=== PATIENT | male | born 1965 | race Caucasian/White ===

== ENCOUNTER 2017-10-31 15:18 | Emergency (ER) | payer OTHER ==
[~2017-10-31] VITALS: Ht 177.8 cm; Wt 113.4 kg
[~2017-10-31 15:18] MED LIST: BENICAR; LUNESTA2 MG PO; ZOLOFT100 MG PO
[2017-10-31] MEDS ORDERED: TOBREX5 ML LEFT EYE (16:30)
[2017-10-31] MEDS ORDERED: ERYTHROMYC1 APPLICAT LEFT EYE (16:30)
[2017-10-31 16:48] VITALS: BP 101/61
== END 2017-10-31 16:48 | disposition home or self-care (01) ==
LOC: EME 15:18
DX: S05.02XA Injury of conjunctiva and corneal abrasion without foreign body, left eye, initial encounter (principal); W22.8XXA Striking against or struck by other objects, initial encounter; Y93.H2 Activity, gardening and landscaping
CPT/HCPCS: 99281; 99284